=== PATIENT | female | born 1965 | race Caucasian/White ===

== ENCOUNTER → 2016-07-18 | Outpatient (CLI) | payer BC | LOC: LAB 09:58 | PROVIDERS: ATTEND Obstetrics & Gynecology | DX: E03.9 Hypothyroidism, unspecified (principal) | CPT/HCPCS: 36415; 84439 ==

== ENCOUNTER → 2016-10-09 | Outpatient (CLI) | payer BC | LOC: MOB LAB 10:56 | PROVIDERS: ATTEND Physician Assistant Medical | DX: N94.89 Other specified conditions associated with female genital organs and menstrual cycle (principal); R31.29 Other microscopic hematuria | CPT/HCPCS: 87077; 87088; 87186; 87480; 87510; 87660 ==